=== PATIENT | male | born 1960 | race Caucasian/White ===

== ENCOUNTER 2020-08-03 12:57 | Inpatient (IN) | payer OTHER, SELFPAY ==
[~2020-08-03] VITALS: Ht 185.4 cm; Wt 88.9 kg
[2020-08-03 12:59] VITALS: Ht 185.4 cm; Wt 88.9 kg
[2020-08-03] MEDS ORDERED: ACETAMINOPHEN650 M6 PO (13:13)
[2020-08-03 14:15] LABS: RED CELL DISTRIBUTION WIDTH 13.1 % (11.5-14.5)
[2020-08-03 14:25] LABS: BASOPHIL % 0 % (0-2); PLATELET COUNT 120 x10^3mcL (130-400)
[2020-08-03 14:30] LABS: CALCIUM 8.1 mg/dL (8.5-10.1); CARBON DIOXIDE 20.9 mmol/L (21-32); CHLORIDE SERUM 111 mmol/L (98-107); CREATININE SERUM 1.8 mg/dL (0.7-1.3); GFR1 41 mL/min; GLUCOSE SERUM 130 mg/dL (74-106); POTASSIUM SERUM 3.4 mmol/L (3.5-5.1); SODIUM SERUM 142 mmol/L (136-145)
[2020-08-03 14:44] LABS: ALKALINE PHOSPHATASE 62 U/L (46-116); ALT/SGPT 20 U/L (16-63); AST/SGOT 28 U/L (15-37); BILIRUBIN TOTAL 0.54 mg/dL (0.20-1.00); C REACTIVE PROTEIN 2.6 mg/dL (<=0.9); LACTIC DEHYDROGENASE (LDH) 208 U/L (100-190); TOTAL PROTEIN, SERUM 6.2 g/dL (6.4-8.2)
[2020-08-03 14:45] LABS: ALBUMIN 2.7 g/dL (3.4-5.0)
[2020-08-03 15:48] VITALS: BP 104/70
[2020-08-03] MEDS ORDERED: GRALISE600 MG PO (15:48)
[2020-08-03] MEDS ORDERED: CLINDAMYCI75 MG/5 ML PO (15:48)
[2020-08-03] MEDS ORDERED: KEN10 TOP (15:48)
[2020-08-03] MEDS ORDERED: ENULOSE10 GM/151 PO (15:49)
[2020-08-03] MEDS ORDERED: CAPSAICIN42.5 GM TOP (15:49)
[2020-08-03] MEDS ORDERED: MSIR15 PO (15:49)
[2020-08-03] MEDS ORDERED: FEVER REDUCER650 MG (15:50)
[2020-08-03] MEDS ORDERED: ASPIRIN CHILDRE81 MG PO (15:50)
[2020-08-03] MEDS ORDERED: ZES10 PO (15:50)
[2020-08-03 17:23] VITALS: BP 103/61
[2020-08-03 20:00] VITALS: BP 99/61
[2020-08-04] VITALS (13 sets, daily range): BP systolic 84–149; BP diastolic 41–613
[2020-08-04 00:25] LABS: microscopic required? YES; urine erythrocyte 2+ (NEGATIVE)
[2020-08-04 05:24] LABS: BASOPHIL % 0.4 % (0-2); PLATELET COUNT 143 x10^3mcL (130-400); RED CELL DISTRIBUTION WIDTH 13.5 % (11.5-14.5)
[2020-08-04 05:31] LABS: CARBON DIOXIDE 20.8 mmol/L (21-32); CREATININE SERUM 1.5 mg/dL (0.7-1.3); POTASSIUM SERUM 4.3 mmol/L (3.5-5.1)
[2020-08-05] VITALS: BP 144/72
[2020-08-05 07:06] LABS: BASOPHIL % 0.2 % (0-2); RED CELL DISTRIBUTION WIDTH 13.2 % (11.5-14.5)
[2020-08-05 07:32] LABS: CARBON DIOXIDE 26.2 mmol/L (21-32); CHLORIDE SERUM 110 mmol/L (98-107); CREATININE SERUM 1.1 mg/dL (0.7-1.3); GFR1 > 60 mL/min; GLUCOSE SERUM 89 mg/dL (74-106); POTASSIUM SERUM 3.8 mmol/L (3.5-5.1); SODIUM SERUM 142 mmol/L (136-145)
[2020-08-05 07:45] LABS: PLATELET COUNT 114 x10^3mcL (130-400)
[2020-08-05 08:39] VITALS: BP 126/78
[2020-08-05 12:33] VITALS: BP 141/84
[2020-08-05 18:49] VITALS: BP 140/88
[2020-08-05 20:18] VITALS: BP 140/72
[2020-08-06 06:00] VITALS: BP 135/77
[2020-08-06 07:52] LABS: BASOPHIL % 0.3 % (0-2); PLATELET COUNT 110 x10^3mcL (130-400)
[2020-08-06 08:00] LABS: CALCIUM 8.5 mg/dL (8.5-10.1); CARBON DIOXIDE 22.9 mmol/L (21-32); CHLORIDE SERUM 111 mmol/L (98-107); CREATININE SERUM 0.9 mg/dL (0.7-1.3); GFR1 > 60 mL/min; GLUCOSE SERUM 91 mg/dL (74-106); POTASSIUM SERUM 3.9 mmol/L (3.5-5.1); SODIUM SERUM 142 mmol/L (136-145)
[2020-08-06 08:23] VITALS: BP 131/75
[2020-08-06 12:15] VITALS: BP 136/87
[2020-08-06 16:05] VITALS: BP 135/56
[2020-08-06 20:52] VITALS: BP 135/73
[2020-08-07 05:32] VITALS: BP 125/91
[2020-08-07 07:17] LABS: BASOPHIL % 0.4 % (0-2); PLATELET COUNT 132 x10^3mcL (130-400); RED CELL DISTRIBUTION WIDTH 13.1 % (11.5-14.5)
[2020-08-07 07:41] LABS: CALCIUM 8.6 mg/dL (8.5-10.1); CARBON DIOXIDE 21.3 mmol/L (21-32); CHLORIDE SERUM 109 mmol/L (98-107); CREATININE SERUM 0.8 mg/dL (0.7-1.3); GFR1 > 60 mL/min; GLUCOSE SERUM 100 mg/dL (74-106); POTASSIUM SERUM 3.7 mmol/L (3.5-5.1); SODIUM SERUM 139 mmol/L (136-145)
[2020-08-07 08:01] VITALS: BP 134/80
[2020-08-07 12:42] VITALS: BP 145/78
[2020-08-07 16:14] VITALS: BP 131/82
[2020-08-07 20:39] VITALS: BP 135/79
[2020-08-08 04:43] VITALS: BP 144/70
[2020-08-08 06:55] LABS: BASOPHIL % 0.4 % (0-2); PLATELET COUNT 164 x10^3mcL (130-400)
[2020-08-08 07:15] LABS: CALCIUM 8.7 mg/dL (8.5-10.1); CARBON DIOXIDE 23.1 mmol/L (21-32); CHLORIDE SERUM 109 mmol/L (98-107); CREATININE SERUM 0.9 mg/dL (0.7-1.3); GFR1 > 60 mL/min; GLUCOSE SERUM 91 mg/dL (74-106); POTASSIUM SERUM 3.8 mmol/L (3.5-5.1); SODIUM SERUM 141 mmol/L (136-145)
[2020-08-08 07:55] VITALS: BP 132/82
[2020-08-08 12:13] VITALS: BP 130/68
[2020-08-08 16:46] VITALS: BP 136/76
[2020-08-08 20:40] VITALS: BP 127/70
[2020-08-09 04:50] VITALS: BP 127/65
[2020-08-09 08:04] VITALS: BP 137/71
[2020-08-09 09:46] LABS: BASOPHIL % 0.3 % (0-2); PLATELET COUNT 190 x10^3mcL (130-400)
[2020-08-09 09:47] LABS: CALCIUM 8.7 mg/dL (8.5-10.1); CARBON DIOXIDE 23.8 mmol/L (21-32); CHLORIDE SERUM 105 mmol/L (98-107); CREATININE SERUM 0.8 mg/dL (0.7-1.3); GFR1 > 60 mL/min; GLUCOSE SERUM 97 mg/dL (74-106); POTASSIUM SERUM 3.6 mmol/L (3.5-5.1); SODIUM SERUM 138 mmol/L (136-145)
[2020-08-09 12:38] VITALS: BP 135/83
[2020-08-09 16:38] VITALS: BP 147/84
[2020-08-09 17:16] VITALS: BP 147/84
[2020-08-09 19:21] VITALS: BP 142/87
[2020-08-10 04:43] VITALS: BP 143/80
[2020-08-10 08:20] VITALS: BP 158/45
[2020-08-10 17:50] VITALS: BP 142/86
[2020-08-10 21:11] VITALS: BP 129/87
[2020-08-11 05:04] VITALS: BP 126/82
[2020-08-11 06:36] LABS: CALCIUM 8.9 mg/dL (8.5-10.1); CARBON DIOXIDE 25.1 mmol/L (21-32); CHLORIDE SERUM 105 mmol/L (98-107); CREATININE SERUM 0.9 mg/dL (0.7-1.3); GFR1 > 60 mL/min; GLUCOSE SERUM 91 mg/dL (74-106); POTASSIUM SERUM 3.6 mmol/L (3.5-5.1); SODIUM SERUM 139 mmol/L (136-145)
[2020-08-11 06:38] LABS: BASOPHIL % 0.3 % (0-2); PLATELET COUNT 222 x10^3mcL (130-400); RED CELL DISTRIBUTION WIDTH 13.1 % (11.5-14.5)
[2020-08-11 08:54] VITALS: BP 127/87
[2020-08-11 12:48] VITALS: BP 127/87
[2020-08-11 13:25] VITALS: BP 120/87
[2020-08-11 16:45] VITALS: BP 145/95
== END 2020-08-11 18:27 | disposition other institution (70) | DRG 871 ==
LOC: ED 12:57 → IC 15:05 → DU 08-05 18:40 → MU 08-09 16:46
PROVIDERS: Emergency Medicine; ADMIT Internal Medicine; ATTEND Internal Medicine
DX: A41.9 Sepsis, unspecified organism (principal); R65.21 Severe sepsis with septic shock; I21.4 Non-ST elevation (NSTEMI) myocardial infarction; N17.9 Acute kidney failure, unspecified; I13.0 Hypertensive heart and chronic kidney disease with heart failure and stage 1 through stage 4 chronic kidney disease, or unspecified chronic kidney disease; L03.115 Cellulitis of right lower limb; M46.20 Osteomyelitis of vertebra, site unspecified; Z20.828 Contact with and (suspected) exposure to other viral communicable diseases; D69.6 Thrombocytopenia, unspecified; N18.9 Chronic kidney disease, unspecified
CPT/HCPCS: 36600; 83880; 85378; G0378; J0461; J0696; J1644; J1885; J2270; J2543; J2550; J3370; J3490; J3535; J7030; J7050; P9045; Q0092; U0003-CS